=== PATIENT | female | born 1950 | race Two or more races ===

== ENCOUNTER 2019-04-05 23:10 | Emergency (ER) | payer OTHER, MEDICAID ==
[~2019-04-05] VITALS: Ht 152.4 cm; Wt 54.4 kg
[2019-04-06 02:06] VITALS: BP 130/85
[2019-04-06] MEDS ORDERED: ACETAMINOPHEN/CODEINE#3 (300/30mg) TAB PO ONE (02:15)
[2019-04-06] MEDS ORDERED: BACLOFEN 10 MG TAB PO ONE (02:15)
== END 2019-04-06 02:43 | disposition home or self-care (01) ==
LOC: ER 23:10 → EDBD 23:10 → ER 04-06 02:43
DX: R07.89 Other chest pain (principal); M54.2 Cervicalgia; V09.9XXA Pedestrian injured in unspecified transport accident, initial encounter; Y93.89 Activity, other specified; Y92.89 Other specified places as the place of occurrence of the external cause; Y99.8 Other external cause status
CPT/HCPCS: 71045

== ENCOUNTER 2020-12-16 17:31 | Emergency (ER) | payer OTHER, MEDICAID ==
[~2020-12-16] VITALS: Ht 160 cm; Wt 65.8 kg
[2020-12-16 21:00] VITALS: BP 110/51
[2020-12-16] MEDS ORDERED: HYDROcodone-ACET 5/325MG TAB PO ONE (21:30)
== END 2020-12-16 21:36 | disposition home or self-care (01) ==
LOC: ER 17:39
DX: S80.12XA Contusion of left lower leg, initial encounter (principal); E11.9 Type 2 diabetes mellitus without complications; E78.5 Hyperlipidemia, unspecified; Z98.51 Tubal ligation status; W18.00XA Striking against unspecified object with subsequent fall, initial encounter; Y93.89 Activity, other specified; Y92.89 Other specified places as the place of occurrence of the external cause; Y99.8 Other external cause status
CPT/HCPCS: 73502; 73562; 93971

== ENCOUNTER → 2021-09-21 | Outpatient (CLI) | payer MEDICAID ==
[2021-09-21 11:00] LABS: Albumin 3.8 g/dL (3.4-5.0); Calcium 9.5 mg/dL (8.5-10.1); Potassium 3.8 mmol/L (3.5-5.1)
[2021-09-21 11:06] LABS: BUN/Creatinine Ratio 24.2; Total Protein 7.4 g/dL (6.4-8.2)
[2021-09-21 11:13] LABS: Bilirubin, Total 0.5 mg/dL (0.2-1.0)
== END | disposition home or self-care (01) ==
LOC: LAB 08:54
PROVIDERS: ATTEND Internal Medicine
DX: E11.9 Type 2 diabetes mellitus without complications (principal); E78.5 Hyperlipidemia, unspecified
CPT/HCPCS: 36415; 80053